=== PATIENT | male | born 1955 | race Caucasian/White ===

== ENCOUNTER 2018-06-28 16:59 | Emergency (ER) | payer SELFPAY ==
[2018-06-28] MEDS ORDERED: NITROGLYCERIN 0.4 MG BTL SL PRN (17:24)
[2018-06-28] MEDS ORDERED: ASPIRIN 81 MG CHEWABLE TAB PO ONE (17:24)
--- NOTE | 2018-06-28 17:24 | EDPHY ---
H & P Time Seen by Provider: 06/28/18 17:15 HPI/ROS: CHIEF COMPLAINT: Chest pressure and arm numbness HISTORY OF PRESENT ILLNESS: 63-year-old man visiting from [facility] since April 20, extensive travel around the [place] Doing performances, with a play about world war 1. He started having symptoms about 5 weeks ago with some pressure in his chest that was better with rest that initially lasted a couple of hours. He had had 3 episodes in the past 5 weeks. Today he describes at a concert having numbness and tingling in both hands at 2:15 a.m. And then when he was walking around intermission at 3:00 p.m. Started getting tightness in his chest. Patient says he has had associated shortness of breath with exertion going up stairs over the past week. Currently symptoms are mild. REVIEW OF SYSTEMS: Eye: no change in vision ENT: no sore throat Cardiac: HPI no palpitations Pulmonary: HPI no cough or hemoptysis Abdomen: no vomiting, diarrhea, abdominal pain Musculoskeletal: No leg swelling Skin: no rash Neuro: no headache Constitutional: no fever : no urinary symptoms A comprehensive 10 point review of systems is otherwise negative aside from elements mentioned in the history of present illness. PAST MEDICAL HISTORY: Negative for diabetes or hypercholesterolemia, has known hypertension. Family history: Negative for venous thromboembolism or coronary disease Social history: Nonsmoker General Appearance: Alert and conversant, cooperative. Eyes: No scleral icterus. ENT, Mouth: Normal mucous membranes. Respiratory: Normal respiratory effort, breath sounds equal, lungs are clear to auscultation. Cardiovascular: Regular rate and rhythm. No murmur. Gastrointestinal: Abdomen is soft and non tender. Neurological: Alert, face symmetric, normal motor and sensory in extremities. Skin: Warm and dry, no rashes. Musculoskeletal: No calf tenderness. Psychiatric: Not agitated. Emergency Department course/MDM: Oral aspirin and sublingual nitroglycerin. History concerning for ACS. Troponin and D-dimer, chest x-ray. 1849: D-dimer elevated, CT angiography discussed and consented; with recent extensive travel. 1950: CTA negative for PE, no lung infiltrates. Slightly enlarged Cardiac cavities per Dr. Madison. No dissection. The patient is re-examined at this time. He has capacity to make decisions regarding his care; reasons are logical. He does not want to be admitted to the hospital for further evaluation because of cost concerns as he is currently not insured. He is warned of the risks of leaving against medical advice including but not limited to heart attack, disability, . He states he understands the risks but still wants to leave. He is encouraged to return if he changes his mind, signed AMA form. Smoking Status: Never smoked Constitutional: Initial Vital Signs Temperature (C) 37.0 C 06/28/18 17:03 Heart Rate 74 06/28/18 17:03 Respiratory Rate 18 06/28/18 17:03 Blood Pressure 184/104 H 06/28/18 17:03 O2 Sat (%) 93 06/28/18 17:03 O2 Delivery Mode Room Air Allergies/Adverse Reactions: No Known Allergies Allergy (Unverified 06/28/18 17:05) Home Medications: Medication Instructions Recorded NK [No Known Home Meds] 06/28/18 Medical Decision Making - Diagnostics EKG Interpretation: 12-lead EKG interpreted by me; official reading is in computer system. My interpretation is sinus rhythm rate 72 with nonspecific lateral T-wave flattening. Imaging Results: Imaging Impressions Chest X-Ray 06/28/18 17:24 Impression: No acute abnormality. Chest/Thorax CTA 06/28/18 18:52 Impression: 1. There is no CT evidence for pulmonary artery thromboembolic disease. 2. Mild right and left ventricular cavity dilatation, and mild left atrial enlargement. 3. Small hiatal hernia. 4. Numerous hepatic cysts. Findings were discussed with GILDARDO WELDON MD at 19:48, on 06/28/2018. Imaging: Discussed imaging studies w/ call or contact centre operator Radiologist, I viewed and interpreted images myself Differential Diagnosis: Differential diagnosis considered for chest pain including but not limited to myocardial ischemia, aortic dissection, pericarditis, pulmonary embolus, chest wall pain, pleural inflammation and pulmonary infectious causes. - Data Points Laboratory Results: Laboratory Results 06/28/18 17:35 06/28/18 17:35 06/28/18 06/28/18 06/28/18 17:35 17:35 17:35 WBC 9.00 10^3/uL 10^3/uL (3.80-9.50) RBC 4.82 10^6/uL 10^6/uL (4.40-6.38) Hgb 14.6 g/dL g/dL (13.7-17.5) Hct 42.2 % % (40.0-51.0) MCV 87.6 fL fL (81.5-99.8) MCH 30.3 pg pg (27.9-34.1) MCHC 34.6 g/dL g/dL (32.4-36.7) RDW 12.1 % % (11.5-15.2) Plt Count 282 10^3/uL 10^3/uL (150-400) MPV 9.2 fL fL (8.7-11.7) Neut % (Auto) 58.4 % % (39.3-74.2) Lymph % (Auto) 31.9 % % (15.0-45.0) Coles % (Auto) 6.9 % % (4.5-13.0) Eos % (Auto) 1.8 % % (0.6-7.6) Baso % (Auto) 0.7 % % (0.3-1.7) Nucleat RBC Rel Count 0.0 % % (0.0-0.2) Absolute Neuts (auto) 5.26 10^3/uL 10^3/uL (1.70-6.50) Absolute Lymphs (auto) 2.87 10^3/uL 10^3/uL (1.00-3.00) Absolute Monos (auto) 0.62 10^3/uL 10^3/uL (0.30-0.80) Absolute Eos (auto) 0.16 10^3/uL 10^3/uL (0.03-0.40) Absolute Basos (auto) 0.06 10^3/uL 10^3/uL (0.02-0.10) Absolute Nucleated RBC 0.00 10^3/uL 10^3/uL (0-0.01) Immature Gran % 0.3 % % (0.0-1.1) Immature Gran # 0.03 10^3/uL 10^3/uL (0.00-0.10) D-Dimer 0.96 ug/mLFEU H ug/mLFEU (0.00-0.50) Sodium 140 mEq/L mEq/L (135-145) Potassium 4.3 mEq/L mEq/L (3.3-5.0) Chloride 106 mEq/L mEq/L (97-110) Carbon Dioxide 26 mEq/l mEq/l (22-31) Anion Gap 8 mEq/L mEq/L (6-14) BUN 19 mg/dL mg/dL (7-23) Creatinine 0.9 mg/dL mg/dL (0.7-1.3) Estimated GFR > 60 Glucose 88 mg/dL mg/dL (70-100) Calcium 9.3 mg/dL mg/dL (8.5-10.4) POC Troponin I 06/28/18 17:26 WBC RBC Hgb Hct MCV MCH MCHC RDW Plt Count MPV Neut % (Auto) Lymph % (Auto) Coles % (Auto) Eos % (Auto) Baso % (Auto) Nucleat RBC Rel Count Absolute Neuts (auto) Absolute Lymphs (auto) Absolute Monos (auto) Absolute Eos (auto) Absolute Basos (auto) Absolute Nucleated RBC Immature Gran % Immature Gran # D-Dimer Sodium Potassium Chloride Carbon Dioxide Anion Gap BUN Creatinine Estimated GFR Glucose Calcium POC Troponin I 0.01 ng/mL ng/mL (0.00-0.08) Medications Given: Discontinued Medications Aspirin (Aspirin) 324 mg PO EDNOW ONE Stop: 06/28/18 17:25 Last Admin: 06/28/18 17:57 Dose: 324 mg Nitroglycerin (Nitrostat) 0.4 mg SL Q5M PRN PRN Reason: Chest Pain Last Admin: 06/28/18 17:59 Dose: 0.4 tab Point of Care Test Results: Chemistry 06/28/18 17:26 POC Troponin I 0.01 ng/mL ng/mL (0.00-0.08) Departure - Departure Disposition: Against Medical Advice Clinical Impression: Chest pain Qualifiers: Chest pain type: unspecified Qualified Code(s): R07.9 - Chest pain, unspecified Condition: Good Instructions: Chest Pain (ED) Additional Instructions: Please take 1 oral aspirin each day. Please follow-up with Dr. Brandt or return to the emergency department if you change your mind about getting further evaluation of your chest pain. Referrals: Olvin Brandt MD [Medical Doctor] - As per Instructions
[2018-06-28 17:52] LABS: PLATELET COUNT 282 10^3/uL (150-400)
[2018-06-28] MEDS ORDERED: IOPAMIDOL (ISOVUE 370) 100 ML BTL IV ONE (18:54)
[2018-06-28 20:09] VITALS: BP 148/94
--- NOTE | 2018-06-28 20:31 | CPEKG ---
Test Reason : OPEN Blood Pressure : / mmHG Vent. Rate : 072 BPM Atrial Rate : 069 BPM P-R Int : 140 ms QRS Dur : 084 ms QT Int : 407 ms P-R-T Axes : 039 -04 103 degrees QTc Int : 446 ms Sinus arrhythmia Nonspecific T abnormalities, lateral leads Confirmed by William Reza ([id number]) on 06/28/2018 8:31:02 PM Referred By: Confirmed By:William Reza
== END 2018-06-28 20:08 | disposition left against medical advice (07) ==
DX: R07.9 Chest pain, unspecified (principal); R20.2 Paresthesia of skin; I51.7 Cardiomegaly; K44.9 Diaphragmatic hernia without obstruction or gangrene; K76.89 Other specified diseases of liver
CPT/HCPCS: 84484-PO; Q9967